=== PATIENT | female | born 1990 ===

== ENCOUNTER 2016-05-05 20:37 | Emergency (ER) | payer SELFPAY ==
[~2016-05-05] VITALS: Ht 160 cm; Wt 59.0 kg
[2016-05-05 20:39] VITALS: BP 126/65; PULSE 85; RESP 16; TEMP 97.7; O2SAT 99
== END 2016-05-06 01:20 | disposition left against medical advice (07) ==
LOC: NED 20:37
DX: Z53.21 Procedure and treatment not carried out due to patient leaving prior to being seen by health care provider (principal)
CPT/HCPCS: 99281